=== PATIENT | female | born 1975 | race Caucasian/White ===

== ENCOUNTER 2019-02-03 01:12 | Emergency (ER) | payer OTHER ==
[~2019-02-03] VITALS: Ht 165.1 cm; Wt 95.3 kg
[~2019-02-03 01:12] MED LIST: AMOXICILLIN500 MG PO; ATARAX25 MG PO; ATORVASTATIN CA10 M1 PO; AUGMENTIN 875 M1 TAB PO; BENTYL20 MG PO; BROMFED PO; CLARITIN10 MG PO; CYCLOBENZAPRINE10 MG PO; DIFLUCAN150 MG PO; FLAGYL500 MG; MOTRIN800 MG PO; NAPROSYN500 MG PO; OMNICEF300 MG PO; PREDNISONE20 MG PO; PROVENTIL0.09 MG/AC IH; ROBITUSSIN DM120 ML PO; TRAMADOL HCL50 MG PO; ULTRAM50 MG PO; VITAMIN D-32000 UNIT PO; ZANTAC 150150 MG PO; ZANTAC150 MG PO; ZITHROMAX Z PA250 MG PO
[2019-02-03 01:38] LABS: BILIRUBIN NEGATIVE (NEGATIVE); BLOOD 2+ (NEGATIVE); CLARITY CLEAR (CLEAR); COLOR YELLOW (YELLOW); GLUCOSE NEGATIVE (NEGATIVE); KETONE NEGATIVE (NEGATIVE); LEUKO ESTERASE NEGATIVE (NEGATIVE); NITRITE POSITIVE (NEGATIVE); PH 5.5 (5.0-9.0); SPECIFIC GRAVITY >= 1.030 (1.005-1.030); UROBILINOGEN 0.2 E.U./dl (0.2-1.0)
[2019-02-03 01:44] LABS: BACTERIA 2+; MUCOUS TRACE
[2019-02-03 02:04] LABS: BASO # 0.1 10*3/uL (0.0-0.1); BASO % 0.5 % (0.0-1.0); EOS # 0.2 10*3/uL (0.0-0.4); EOS % 1.6 % (1.0-4.0); HEMATOCRIT 37.8 % (37.0-47.0); HEMOGLOBIN 12.5 g/dl (12.0-16.0); LYMPH # 3.5 10*3/uL (1.3-4.4); LYMPH % 35.8 % (27.0-41.0); MEAN CELL VOLUME 88.3 fl (81.0-99.0); MEAN CORPUSCULAR HGB 29.2 pg (27.0-31.0); MEAN CORPUSCULAR HGB CONC 33.1 g/dl (33.0-37.0); MEAN PLATELET VOLUME 9.7 fl (9.6-12.3); MONO # 0.6 10*3/uL (0.1-1.0); MONO % 5.6 % (3.0-9.0); NEUT # 5.5 10*3/uL (2.3-7.9); NEUT % 56.3 % (47.0-73.0); PLATELET COUNT AUTOMATED 274 10*3/uL (130-400); RED BLOOD COUNT 4.28 10*6/uL (4.10-5.10); RED CELL DISTRI WIDTH 13.5 % (0-14.5); WHITE BLOOD COUNT 9.7 10*3/uL (4.8-10.8)
[2019-02-03 02:19] LABS: ALBUMIN 3.5 gm/dl (3.1-4.5); ALKALINE PHOSPHATASE 113 U/L (45-117); BUN 13 mg/dl (7-24); CHLORIDE 107 mmol/L (98-107); CREATININE 0.69 mg/dL (0.55-1.02); LIPASE 196 U/L (73-393); POTASSIUM 3.9 mmol/L (3.5-5.1); SGOT/AST 13 IU/L (3-35); SGPT/ALT 22 U/L (12-78); SODIUM 137 mmol/L (136-145); TOTAL PROTEIN 7.1 gm/dL (6.4-8.2)
[2019-02-03] MEDS ORDERED: MACROBID100 M1 PO (03:02)
== END 2019-02-03 03:15 | disposition home or self-care (01) ==
LOC: ED 01:12
PROVIDERS: Emergency Medicine Emergency Medical Services
DX: N39.0 Urinary tract infection, site not specified (principal); R11.2 Nausea with vomiting, unspecified; Z79.2 Long term (current) use of antibiotics; Z79.899 Other long term (current) drug therapy

== ENCOUNTER 2021-09-18 16:04 | Emergency (ER) | payer OTHER ==
[~2021-09-18] VITALS: Ht 165.1 cm; Wt 104.3 kg
[~2021-09-18 16:04] MED LIST changes: +MACROBID100 M1 PO
[2021-09-18] MEDS ORDERED: AUGMENTIN 875-875 MG PO (16:29)
[2021-09-18] MEDS ORDERED: IBUPROFEN600 MG PO (16:29)
== END 2021-09-18 16:55 | disposition home or self-care (01) ==
LOC: ED 16:04
DX: K02.9 Dental caries, unspecified (principal)

== ENCOUNTER 2022-08-13 22:03 | Emergency (ER) | payer BC ==
[~2022-08-13] VITALS: Ht 167.6 cm; Wt 90.7 kg
[~2022-08-13 22:03] MED LIST changes: +AUGMENTIN 875-875 MG PO; +IBUPROFEN600 MG PO
[2022-08-13 22:30] LABS: BASO % 0.3 % (0.0-1.0); EOS # 0.2 10*3/uL (0.0-0.4); EOS % 1.7 % (1.0-4.0); HEMATOCRIT 39.7 % (37.0-47.0); LYMPH # 4.8 10*3/uL (1.3-4.4); LYMPH % 37.7 % (27.0-41.0); MEAN CELL VOLUME 87.6 fl (81.0-99.0); MEAN CORPUSCULAR HGB 30.2 pg (27.0-31.0); MEAN CORPUSCULAR HGB CONC 34.5 g/dl (33.0-37.0); MEAN PLATELET VOLUME 9.7 fl (9.6-12.3); MONO # 0.6 10*3/uL (0.1-1.0); MONO % 4.8 % (3.0-9.0); NEUT # 6.9 10*3/uL (2.3-7.9); NEUT % 54.5 % (47.0-73.0); PLATELET COUNT AUTOMATED 292 10*3/uL (130-400); RED BLOOD COUNT 4.53 10*6/uL (4.10-5.10); RED CELL DISTRI WIDTH 13.2 % (0-14.5); WHITE BLOOD COUNT 12.6 10*3/uL (4.8-10.8)
[2022-08-13 22:34] LABS: BILIRUBIN Negative (Negative); BLOOD Trace-Lysed (Negative); CLARITY Clear (Clear); COLOR Yellow (Yellow); GLUCOSE Negative (Negative); KETONE Trace (Negative); LEUKO ESTERASE Negative (Negative); NITRITE Negative (Negative); PH 5.5 (4.5-8.0); SPECIFIC GRAVITY >= 1.030 (1.001-1.030)
[2022-08-13 22:46] LABS: MUCOUS 1+; WBC 0-2 wbc/hpf (0-5)
[2022-08-13 23:02] LABS: ALKALINE PHOSPHATASE 79 U/L (46-116); BUN 16 mg/dl (9-23); CHLORIDE 102 mmol/L (98-107); POTASSIUM 3.5 mmol/L (3.4-5.1); SGPT/ALT 49 U/L (10-49); TOTAL PROTEIN 6.7 gm/dL (6.0-8.0)
[2022-08-14] MEDS ORDERED: BENZONATATE100 M1 PO (04:25)
== END 2022-08-14 04:49 | disposition home or self-care (01) ==
LOC: ED 22:03
PROVIDERS: Emergency Medicine
DX: J40 Bronchitis, not specified as acute or chronic (principal); J45.909 Unspecified asthma, uncomplicated; Z79.899 Other long term (current) drug therapy; Z98.51 Tubal ligation status; Z90.89 Acquired absence of other organs